=== PATIENT | female | born 1965 | race Caucasian/White ===

== ENCOUNTER 2017-10-08 07:42 | Emergency (ER) | payer MEDICAID ==
[~2017-10-08] VITALS: Ht 157.5 cm; Wt 72.6 kg
[~2017-10-08 07:42] MED LIST: BACTRIM DS TAB1 EACH PO; CLONAZEPAM; CLORPRES 0.1-11 EACH; FLEXERIL PO; FLUOXETINE HCL40 MG PO; LISINOPRIL-HCT1 EAC1 PO; NAPROSYN375 MG PO; NORCO 5-325 TA1 EACH PO; VICODIN 5-5001 EACH PO
[2017-10-08] MEDS ORDERED: ATIVAN0.5 MG PO (07:55)
[2017-10-08] MEDS ORDERED: OXYCODONE HCL E10 MG PO (07:55)
[2017-10-08] MEDS ORDERED: CELEXA40 MG PO (07:55)
[2017-10-08] MEDS ORDERED: ZOFRAN ODT4 MG DISSOLVE (07:56)
[2017-10-08] MEDS ORDERED: OXYCONTIN20 M1 PO (07:56)
[2017-10-08] MEDS ORDERED: PREDNISONE 20 M20 M1 PO (09:23)
[2017-10-08] MEDS ORDERED: VENTOLIN HFA 1818 GM INH (09:23)
[2017-10-08 09:31] VITALS: BP 118/71
== END 2017-10-08 09:32 | disposition home or self-care (01) ==
LOC: M.ERS 07:42
DX: J40 Bronchitis, not specified as acute or chronic (principal); I10 Essential (primary) hypertension; F32.9 Major depressive disorder, single episode, unspecified; F17.210 Nicotine dependence, cigarettes, uncomplicated; Z88.0 Allergy status to penicillin

== ENCOUNTER 2019-11-01 13:08 | Emergency (ER) | payer MEDICAID ==
[~2019-11-01] VITALS: Ht 160 cm; Wt 83.9 kg
[~2019-11-01 13:08] MED LIST changes: +ATIVAN0.5 MG PO; +CELEXA40 MG PO; +OXYCODONE HCL E10 MG PO; +OXYCONTIN20 M1 PO; +PREDNISONE 20 M20 M1 PO; +VENTOLIN HFA 1818 GM INH; +ZOFRAN ODT4 MG DISSOLVE
[2019-11-01] MEDS ORDERED: MOBIC7.5 MG PO (14:22)
[2019-11-01 14:28] VITALS: BP 127/86
== END 2019-11-01 14:30 | disposition home or self-care (01) ==
LOC: M.ERS 13:08
DX: R07.81 Pleurodynia (principal); I10 Essential (primary) hypertension; F32.9 Major depressive disorder, single episode, unspecified; F17.210 Nicotine dependence, cigarettes, uncomplicated; Z85.118 Personal history of other malignant neoplasm of bronchus and lung; Z85.3 Personal history of malignant neoplasm of breast; Z90.721 Acquired absence of ovaries, unilateral; Z90.13 Acquired absence of bilateral breasts and nipples; Z88.0 Allergy status to penicillin

== ENCOUNTER 2021-06-11 08:34 | Emergency (ER) | payer MEDICAID ==
[~2021-06-11] VITALS: Ht 157.5 cm; Wt 87.1 kg
[~2021-06-11 08:34] MED LIST changes: +MOBIC7.5 MG PO
[2021-06-11 08:43] VITALS: BP 135/81
[2021-06-11] MEDS ORDERED: ZPAK PO (08:59)
[2021-06-11] MEDS ORDERED: PREDNISONE 20 M20 M1 PO (08:59)
[2021-06-11] MEDS ORDERED: VENTOLIN HFA 1818 GM INH (08:59)
== END 2021-06-11 09:12 | disposition home or self-care (01) ==
LOC: M.ERS 08:34
DX: J40 Bronchitis, not specified as acute or chronic (principal); I10 Essential (primary) hypertension; F32.9 Major depressive disorder, single episode, unspecified; F17.210 Nicotine dependence, cigarettes, uncomplicated; Z85.9 Personal history of malignant neoplasm, unspecified; Z98.890 Other specified postprocedural states; Z79.899 Other long term (current) drug therapy; Z88.0 Allergy status to penicillin